=== PATIENT | female | born 1935 | race Caucasian/White ===

== ENCOUNTER 2016-12-19 00:59 | Emergency (ER) | payer OTHER ==
[~2016-12-19] VITALS: Ht 172.7 cm; Wt 65.8 kg
[~2016-12-19 00:59] MED LIST: APAP500 PO; BACTRIM DS TAB1 EACH PO; BENTYL 20 MG TA20 M1 PO; CRANBERRY500 M1 PO; ESCITALOPRAM OX20 MG PO; EXCEDRIN CAPLE1 EACH PO; LIPITOR 20 MG T20 M1 PO; LISINOPRIL10 MG PO; LOPERAMIDE 2 MG2 M1 PO; OMEPRAZOLE 20 M20 MG PO; OXYBUTYNIN ER 55 MG PO; XANAX 0.25 MG0.25 MG PO
[2016-12-19] MEDS ORDERED: AUGMENTIN 875875 MG PO (01:11)
[2016-12-19] MEDS ORDERED: MACROBID 100 M100 M2 PO (01:12)
[2016-12-19] MEDS ORDERED: ASPIR 8181 MG PO (01:12)
[2016-12-19] MEDS ORDERED: ZYPREXA5 MG PO (01:12)
[2016-12-19] MEDS ORDERED: XANAX 0.25 MG0.25 MG PO (01:12)
== END 2016-12-19 03:59 ==
LOC: ER 00:59
DX: S00.03XA Contusion of scalp, initial encounter (principal); S70.02XA Contusion of left hip, initial encounter; Z88.0 Allergy status to penicillin; W18.30XA Fall on same level, unspecified, initial encounter; Y93.89 Activity, other specified; Y92.89 Other specified places as the place of occurrence of the external cause; Y99.8 Other external cause status

== ENCOUNTER 2017-01-19 13:42 | Inpatient (IN) | payer OTHER ==
[~2017-01-19] VITALS: Ht 167.6 cm; Wt 58.7 kg
--- NOTE | ~2017-01-19 | EKG ---
[address] [address] ELECTROCARDIOGRAM REPORT Name: GALO SORTO Room #: 436-P [facility] IN M.R.#: [id number] Admission: 01/19/17 Attend Phys: Suleiman Polk MD Discharge: 01/22/17 Date of : 37 Report #: [id number] THIS REPORT FOR: //name// [facility] ED Test Date: 2017-01-19 Test Time: 14:09:29 Pat Name: GALO SORTO Department: Room: [facility] Gender: F Administrative Aide: MERNA : 1935 Requested By: Lg Jovel Order Number: [id number] MD: Ben Shrestha Measurements Intervals [place] Rate: 95 P: 90 [place]: 163 QRS: 72 QRSD: 138 T: 50 QT: 402 QTc: 506 Interpretive Statements Sinus rhythm Right bundle branch block Compared to ECG 05/12/2016 15:30:16 No significant changes Electronically Signed On 01-23-2017 21:52:22 CDT by Ben Shrestha [email or web address] <ELECTRONICALLY SIGNED> By: Ben Shrestha MD 01/23/17 [id number] Ben Shrestha MD /EPI
[~2017-01-19 13:42] MED LIST changes: +ASPIR 8181 MG PO; +AUGMENTIN 875875 MG PO; +MACROBID 100 M100 M2 PO; +ZYPREXA5 MG PO
[2017-01-19 13:43] VITALS: BP 104/57
[2017-01-19 14:32] LABS: HEMOGLOBIN 13.7 gm/dL (12.0-15.0); MCH 30.3 pg (26.0-34.0); MCHC 33.4 g/dL (28.0-37.0); MCV 90.6 fL (80.0-100.0); PLATELET COUNT 266 thou/uL (150-400); RBC 4.52 mil/uL (4.20-5.00); RDW 13.7 % (10.5-14.5); WBC 14.5 thou/uL (4.0-11.0)
[2017-01-19 14:33] LABS: MANUAL DIFF YES
[2017-01-19 14:43] LABS: ANION GAP 8 mmol/L (7-16); BUN 27 mg/dL (7-18); CALCIUM 9.4 mg/dL (8.5-10.1); CHLORIDE 102 mmol/L (98-107); CO2 26 mmol/L (21-32); CREATININE 1.4 mg/dL (0.6-1.0); GLUCOSE 140 mg/dL (74-106); SODIUM 136 mmol/L (136-145)
[2017-01-19 14:51] LABS: TROPONIN-I < 0.04 ng/mL (<0.04-0.07)
[2017-01-19 14:52] LABS: ABSOLUTE NEUTROPHILS 11.5 thou/uL (1.4-8.2); TOTAL CELL COUNT 100
[2017-01-19 14:53] LABS: ANISOCYTOSIS SLIGHT; MICROCYTES SLIGHT
[2017-01-19 15:54] LABS: URINE BILIRUBIN NEGATIVE (Negative); URINE BLOOD NEGATIVE (Negative); URINE GLUCOSE-RANDOM* NEGATIVE (Negative); URINE KETONES NEGATIVE (Negative); URINE LEUKOCYTES-REFLEX 2+ (Negative); URINE PROTEIN (DIPSTICK) 2+ (Negative)
[2017-01-19 15:55] LABS: URINE COLOR DARK YELLOW
[2017-01-19 16:00] LABS: AMORPHOUS URATES Moderate /LPF (None Seen); CASTS None Seen /LPF (None Seen); SQUAMOUS 0-3 Few /LPF (0-3); URINE RBC 0-2 Rare /HPF (0-2); URINE WBC-REFLEX 6-15 Few /HPF (0-5)
[2017-01-19] MEDS ORDERED: KEFLEX500 MG PO (16:32)
[2017-01-19 19:07] VITALS: BP 130/82
[2017-01-20 05:28] VITALS: BP 129/86
[2017-01-20 05:41] LABS: ABSOLUTE NEUTROPHILS 7.7 thou/uL (1.4-8.2); BASOPHILS 0.3 % (0.0-2.0); EOSINOPHILS 0.3 % (0.0-3.0); HEMATOCRIT 34.2 % (37.0-47.0); LYMPHOCYTES 15.8 % (24.0-44.0); MCHC 34.1 g/dL (28.0-37.0); MCV 90.8 fL (80.0-100.0); MONOCYTES 5.2 % (1.0-8.0); PLATELET COUNT 202 thou/uL (150-400); POLYS 78.4 % (36.0-66.0); RBC 3.77 mil/uL (4.20-5.00); RDW 13.6 % (10.5-14.5); WBC 9.8 thou/uL (4.0-11.0)
[2017-01-20 05:47] LABS: HEMOGLOBIN 11.7 gm/dL (12.0-15.0); MANUAL DIFF NO
[2017-01-20 05:56] LABS: CALCIUM 8.4 mg/dL (8.5-10.1); CREATININE 0.8 mg/dL (0.6-1.0); POTASSIUM 3.7 mmol/L (3.5-5.1)
[2017-01-20 08:00] VITALS: BP 124/62
[2017-01-20 13:41] LABS: HEMATOCRIT 34.4 % (37.0-47.0); HEMOGLOBIN 11.7 gm/dL (12.0-15.0)
[2017-01-20 16:00] VITALS: BP 142/77
[2017-01-20 20:15] VITALS: BP 117/86
[2017-01-20 22:07] LABS: HEMATOCRIT 33.5 % (37.0-47.0); HEMOGLOBIN 11.2 gm/dL (12.0-15.0)
[2017-01-21 04:50] VITALS: BP 113/46
[2017-01-21 05:20] VITALS: BP 134/61
[2017-01-21 06:19] LABS: ABSOLUTE NEUTROPHILS 8.5 thou/uL (1.4-8.2); BASOPHILS 0.3 % (0.0-2.0); EOSINOPHILS 1.6 % (0.0-3.0); HEMATOCRIT 34.6 % (37.0-47.0); HEMOGLOBIN 11.7 gm/dL (12.0-15.0); LYMPHOCYTES 12.1 % (24.0-44.0); MCH 30.5 pg (26.0-34.0); MCHC 33.8 g/dL (28.0-37.0); MCV 90.2 fL (80.0-100.0); MONOCYTES 5.5 % (1.0-8.0); PLATELET COUNT 194 thou/uL (150-400); POLYS 80.5 % (36.0-66.0); RBC 3.84 mil/uL (4.20-5.00); RDW 13.8 % (10.5-14.5); WBC 10.6 thou/uL (4.0-11.0)
[2017-01-21 06:32] LABS: MANUAL DIFF NO
[2017-01-21 06:37] LABS: ALBUMIN 3.2 g/dL (3.4-5.0); CALCIUM 8.7 mg/dL (8.5-10.1); CREATININE 0.7 mg/dL (0.6-1.0); MAGNESIUM 1.8 mg/dL (1.8-2.4); POTASSIUM 3.6 mmol/L (3.5-5.1); TOTAL BILIRUBIN 0.4 mg/dL (<0.1-1.0); TOTAL PROTEIN 6.4 g/dL (6.4-8.2)
[2017-01-21 08:53] VITALS: BP 140/70
[2017-01-21 16:43] VITALS: BP 115/58
[2017-01-21 19:20] VITALS: BP 116/61
[2017-01-22 04:03] LABS: ABSOLUTE NEUTROPHILS 4.7 thou/uL (1.4-8.2); BASOPHILS 0.6 % (0.0-2.0); EOSINOPHILS 3.7 % (0.0-3.0); HEMATOCRIT 30.9 % (37.0-47.0); HEMOGLOBIN 10.5 gm/dL (12.0-15.0); LYMPHOCYTES 21.5 % (24.0-44.0); MCH 30.8 pg (26.0-34.0); MCHC 33.9 g/dL (28.0-37.0); MONOCYTES 5.6 % (1.0-8.0); PLATELET COUNT 158 thou/uL (150-400); POLYS 68.6 % (36.0-66.0); RDW 13.4 % (10.5-14.5); WBC 6.8 thou/uL (4.0-11.0)
[2017-01-22 04:06] LABS: MANUAL DIFF NO
[2017-01-22 04:13] LABS: CALCIUM 8.1 mg/dL (8.5-10.1); CREATININE 0.8 mg/dL (0.6-1.0); MAGNESIUM 1.6 mg/dL (1.8-2.4); POTASSIUM 3.2 mmol/L (3.5-5.1)
[2017-01-22 04:45] VITALS: BP 105/53
[2017-01-22 08:00] VITALS: BP 124/61
== END 2017-01-22 11:59 | DRG 871 ==
LOC: ER 13:42 → EROBS 17:32 → 4S 17:32
PROVIDERS: Internal Medicine Endocrinology, Diabetes & Metabolism; Nurse Practitioner; Physician Assistant
DX: A41.9 Sepsis, unspecified organism (principal); G93.41 Metabolic encephalopathy; N17.9 Acute kidney failure, unspecified; N39.0 Urinary tract infection, site not specified; K52.1 Toxic gastroenteritis and colitis; I10 Essential (primary) hypertension; K21.9 Gastro-esophageal reflux disease without esophagitis; F32.9 Major depressive disorder, single episode, unspecified; E78.5 Hyperlipidemia, unspecified; F41.9 Anxiety disorder, unspecified; N32.81 Overactive bladder; F03.90 Unspecified dementia, unspecified severity, without behavioral disturbance, psychotic disturbance, mood disturbance, and anxiety; G43.909 Migraine, unspecified, not intractable, without status migrainosus; E86.0 Dehydration; T47.4X5A Adverse effect of other laxatives, initial encounter; Y92.89 Other specified places as the place of occurrence of the external cause; Z91.81 History of falling; Z86.73 Personal history of transient ischemic attack (TIA), and cerebral infarction without residual deficits; Z88.0 Allergy status to penicillin
CPT/HCPCS: 10102